=== PATIENT | female | born 1970 | race Caucasian/White ===

== ENCOUNTER 2018-03-06 21:35 | Emergency (ER) | payer OTHER, MEDICAID ==
[2018-03-06] MEDS: LABETALOL HCL 20MG INJ IV (22:41)
[2018-03-06] MEDS: NIFEdipine (XL) 30 MG TAB PO (22:41)
[2018-03-07] MEDS: LORAZEPAM 1 MG TAB PO (00:47)
[2018-03-07] MEDS: LABETALOL HCL 20MG INJ IV (00:47)
== END 2018-03-07 01:29 | disposition home or self-care (01) ==
LOC: E/R 03-07 01:29
DX: I16.0 Hypertensive urgency (principal); F15.10 Other stimulant abuse, uncomplicated
CPT/HCPCS: 70450; 81025; 96374; 96376; 99285-25